=== PATIENT | male | born 1930 | race Caucasian/White ===

== ENCOUNTER 2017-10-31 10:58 | Emergency (ER) | payer OTHER ==
[~2017-10-31] VITALS: Ht 165.1 cm; Wt 71.7 kg
--- NOTE | 2017-10-31 12:15 | ED HEADACHE COMPLAINT ---
History of Present Illness General Chief Complaint: Headache Stated Complaint: HEADACHE Source: patient, family, old records Exam Limitations: no limitations Vital Signs & Intake/Output Vital Signs & Intake/Output Vital Signs Date Time Temp Pulse Resp B/P B/P Pulse O2 O2 Flow FiO2 Mean Ox Delivery Rate 10/31 1221 89 110/70 10/31 1156 97 Room Air 2.0L 10/31 1108 97.5 93 20 105/72 97 Nasal 2.0L Cannula Allergies Coded Allergies: No Known Allergies (10/31/17) Triage Note: PT SIB PMD FOR CT SCAN OF HEAD. PT C/O H/A X 1 WEEK WITH SOME WEAKNESS AND SIZZINESS WITH WALKING. PT DENIES CP/SOB. PT ON 2LNC AT BASELINE Triage Nurses Notes Reviewed? yes Onset: Abrupt Duration: week(s): (1), better, constant, resolved prior to arrival Timing: recent history Quality/Severity: mild, achy Severity Numbers: 4 Head Injury Location: parietal No Modifying Factors: none Associated Symptoms: denies HPI: 87-year-old male [facility] to ER for evaluation complaining of right sided parietal scalp pain present for the past 1 week. He went and saw his primary care physician today who sent them here for a CAT scan. The patient however states that the symptoms completely resolved after the doctor "cracked my neck" in the office today. He denies blurry vision chest pain shortness of breath dizziness lightheadedness. Contrary to the triage note. The patient and his daughter Xiomy denied weakness dizziness with walking. He is ambulatory here with steady gait he offers no complaints otherwise. No nausea no vomiting Past History Travel History Traveled to [place] past 21 day No Medical History Any Pertinent Medical History? see below for history Cardiovascular: A-FIB Respiratory: COPD, INTERSTITIAL LUNG DISEASE Endocrine: diabetes Surgical History Surgical History: non-contributory Psychosocial History Who do you live with Family What is your primary language Turkish (Flemish) Tobacco Use: Quit >30 days ago ETOH Use: denies use Illicit Drug Use: denies illicit drug use Family History Hx Contributory? No Review of Systems Review of Systems Constitutional: Reports: see HPI. Comments Review of systems: See HPI, All other systems negative. Constitutional, no chills no fever HEENT: no sore throat no congestion Cardiovascular: No chest pain Skin: no rashes, no change in skin Respiratory: No dyspnea no cough GI: No nausea no vomiting, Muscle skeletal: No joint pain, no back pain, no neck pain, Neurologic: headache Heme/endocrine: No bruising Physical Exam Physical Exam General Appearance: well developed/nourished, no apparent distress, alert, awake Cranial Nerves: normal speech, PERRL Comments: Well-developed well-nourished person in no acute distress HEENT: Normal EENT exam; PERRL, EOMI, HEAD is atraumatic. Scalp was nontender no mastoid tenderness moist mucous membranes. Neck: Supple, normal range of motion Back: Nontender. Full range of motion Respiratory: No respiratory distress. Patient speaking in full complete sentences. Breath sounds clear to auscultation bilaterally: NO W/R/R Extremity: No edema, full range of motion of extremities 5 out of 5 strength noted to bilateral upper and lower extremities Neuro: Alert oriented x3, motor sensory normal, cranial nerves II through XII grossly intact. There were no obvious focal neurologic abnormalities. Skin: No appreciable rash on exposed skin, skin is warm and dry. Psych: Mood and affect is normal, memory and judgment is normal. Core Measures Sepsis Present: No Sepsis Focused Exam Completed? No Progress Differential Diagnosis: IC mass/tumor, intracranial Hem., subarach. Hem., muscle strain Plan of Care: Orders Procedure Date/time Status CT HEAD WO IV CONTRAST 11/01 1111 Active Patient ambulatory with steady gait, CAT scan was ordered from triage patient denies any complaints however at this time there is no head pain headache nausea vomiting blurry vision neck or back pain I discussed with the patient and his daughter at length his results. Patient has been asymptomatic here the symptoms resolved he states after his doctor cracked his neck today at the office there declining blood work.. I had an extensive conversation regarding need for close follow up with their primary care physician this week as well as return precautions. I answered all of their questions, they feel comfortable with the plan and follow-up care. Diagnostic Imaging: Viewed by Me: CT Scan. Discussed w/RAD: CT Scan. Radiology Impression: PATIENT: IVA SIMPSON PRESENT AGE: 87 PATIENT ACCOUNT NO: [id number] : 30 LOCATION: [facility] ORDERING PHYSICIAN: Jayro THOMASON SERVICE DATE: 18-1112 EXAM TYPE: CAT - CT HEAD WO IV CONTRAST EXAMINATION: CT HEAD WITHOUT CONTRAST CLINICAL INFORMATION: Headache COMPARISON: None TECHNIQUE: Contiguous axial imaging was performed from the skull base to vertex without intravenous administration of contrast. DLP: 614.88 mGy-cm FINDINGS: There is no evidence of acute intracranial hemorrhage or territorial infarction. No abnormal mass effect or midline shift is seen. Leyva to white matter differentiation is well preserved. No extra-axial fluid collections are identified. The ventricles are normal in size. 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 Atherosclerotic calcifications of the cavernous parts of internal carotid arteries noted. The osseous structures and soft tissues are normal. The mastoid air cells and visualized portions of the paranasal sinuses are well aerated. IMPRESSION: No acute intracranial pathology. DICTATED BY: Armando Harrington MD DATE/TIME DICTATED:10/31/171206 [employer] HATCH[employer] MAN:MARIELOS DATE/TIME TRANSCRIBED:10/31/171206 CONFIDENTIAL, DO NOT COPY WITHOUT APPROPRIATE AUTHORIZATION. <Electronically signed in Other Vendor System> SIGNED BY: Armando Harrington MD 10/31/17 1215 Departure Departure Time of Disposition: 1218 Disposition: HOME OR SELF CARE Condition: Stable Clinical Impression Primary Impression: Head pain Referrals: Tal Funez MD (PCP/Family) Additional Instructions: Follow-up with your primary care physician, return to ER with any concerns. Departure Forms: Customer Survey General Discharge Information
[2017-10-31 12:21] VITALS: BP 110/70
== END 2017-10-31 12:22 ==
LOC: ERH 10:58
DX: R51 Headache (principal)